=== PATIENT | female | born 1995 | race Native Hawaiian/Other Pacific Islander ===

== ENCOUNTER 2019-09-07 22:18 | Emergency (ER) | payer SELFPAY ==
[2019-09-08 00:38] VITALS: BP 139/93
[2019-09-08] MEDS ORDERED: ONDANSETRON 4 MG/2 ML INJ IV ONE (01:16)
[2019-09-08] MEDS ORDERED: SODIUM CHLORIDE 0.9% 1000 ML 1,000 ML IV ONE (01:16)
[2019-09-08] MEDS ORDERED: DICYCLOMINE 20 MG/2 ML INJ IM ONE (01:17)
[2019-09-08] MEDS ORDERED: FAMOTIDINE 20 MG/2 ML INJ IV ONE (01:17)
--- NOTE | 2019-09-08 01:20 | Emergency Department Report ---
ED N/V/D HPI - General Chief complaint: Nausea/Vomiting/Diarrhea Stated complaint: BODY PAIN Time Seen by Provider: 09/08/19 01:05 Source: patient Mode of arrival: Ambulatory Limitations: No Limitations - History of Present Illness Initial comments: 24 year old female presents to ED c/o flu like symptoms. Onset of symptoms yesterday. She reports nausea with multiple episodes of vomiting since yesterday. She states she had only one episode of diarrhea but she has been having "bad" upper abdominal pain. She reports associated generalized body aches, rhinorrhea, nasal congestion and subjective fever. She denies any apparent ill contacts. She denies any uti symptoms or abnl vag symptoms. Her last MC was about 2 weeks ago. She denies any cough, SOB, wheezing or any other symptoms at this time. MD complaint: nausea, vomiting, diarrhea, abdominal pain, other (Body aches, URI symptoms) -: Sudden (yesterday ) - Related Data Previous Rx's Medication Instructions Recorded Last Taken Type Sulfamethoxazole/Trimethoprim 1 each PO BID #14 tablet 08/02/15 Unknown Rx [Bactrim DS TAB] Acetaminophen/Codeine [Tylenol 1 tab PO Q6H PRN #15 tab 09/08/19 Unknown Rx /Codeine # 3 tab] Famotidine [Pepcid] 40 mg PO QHS #14 tablet 09/08/19 Unknown Rx Ondansetron [Zofran Odt] 4 mg PO Q8HR PRN #12 tab.rapdis 09/08/19 Unknown Rx Allergies Allergy/AdvReac Type Severity Reaction Status Date / Time No Known Allergies Allergy Verified 09/07/19 22:33 ED Review of Systems ROS: Stated complaint: BODY PAIN Other details as noted in HPI Comment: All other systems reviewed and negative Constitutional: see HPI, fever, weakness. denies: chills ENT: congestion, other (rhinorrhea) Respiratory: denies: cough, shortness of breath, SOB with exertion, SOB at rest, wheezing Cardiovascular: denies: chest pain Gastrointestinal: abdominal pain, nausea, vomiting, diarrhea Genitourinary: denies: urgency, dysuria, frequency, hematuria, discharge, abnormal menses, dyspareunia Musculoskeletal: myalgia Neurological: weakness. denies: headache, numbness, paresthesias, confusion, abnormal gait, vertigo ED Past Medical Hx - Past Medical History Previous Medical History?: No - Surgical History Past Surgical History?: Yes Additional Surgical History: chest tube - Social History Smoking Status: Never Smoker Substance Use Type: Marijuana - Medications Home Medications: Home Medications Medication Instructions Recorded Confirmed Last Taken Type Sulfamethoxazole/Trimethoprim 1 each PO BID #14 tablet 08/02/15 Unknown Rx [Bactrim DS TAB] Acetaminophen/Codeine [Tylenol 1 tab PO Q6H PRN #15 tab 09/08/19 Unknown Rx /Codeine # 3 tab] Famotidine [Pepcid] 40 mg PO QHS #14 tablet 09/08/19 Unknown Rx Ondansetron [Zofran Odt] 4 mg PO Q8HR PRN #12 tab.rapdis 09/08/19 Unknown Rx ED Physical Exam - General Limitations: No Limitations General appearance: alert, other (pt ill appearing but overall not toxic) - Head Head exam: Present: atraumatic, normocephalic, normal inspection - Eye Eye exam: Present: normal appearance, PERRL Pupils: Present: normal accommodation - ENT ENT exam: Present: normal orophraynx, mucous membranes dry - Neck Neck exam: Present: normal inspection, full ROM. Absent: tenderness, meningismu s - Respiratory Respiratory exam: Present: normal lung sounds bilaterally - Cardiovascular Cardiovascular Exam: Present: regular rate, normal rhythm, normal heart sounds - GI/Abdominal GI/Abdominal exam: Present: soft, tenderness (diffuse upper abdomen). Absent: distended, guarding, rebound - Neurological Exam Neurological exam: Present: alert, oriented X3, CN II-XII intact, normal gait - Skin Skin exam: Present: intact ED Course Vital Signs 09/07/19 09/08/19 22:33 03:50 Temperature 98.7 F Pulse Rate 49 L Respiratory 18 18 Rate Blood Pressure 139/93 O2 Sat by Pulse 100 Oximetry ED Medical Decision Making - Lab Data Result diagrams: 09/08/19 00:36 09/08/19 00:36 - Radiology Data patient presented to ED c/o flu like symptoms including nausea, vomiting, body aches, cough uri symptoms and 1 episode of diarrhea. labs reviewed and unremarkable including negative flu. Patient currently resting comfortably and no distress. She is not toxic appearing. She has normal mental status and she is neurologically intact. She has non surgical abdominal exam. She has not vomitting since she has been in room. Her vitals are stable. Suspect viral syndrome at this time. Imaging nor any further work up indicated at this time. Discussed results with patient. Recommend close f/u with PCP but if worse return to ED. Critical care attestation.: If time is entered above; I have spent that time in minutes in the direct care of this critically ill patient, excluding procedure time. ED Disposition Clinical Impression: Gastroenteritis, Viral syndrome Disposition: DC- TO HOME OR SELFCARE Is pt being admited?: No Does the pt Need Aspirin: No Condition: Stable Instructions: Gastroenteritis (ED), Viral Syndrome (ED) Prescriptions: Famotidine [Pepcid] 40 mg PO QHS #14 tablet Acetaminophen/Codeine [Tylenol /Codeine # 3 tab] 1 tab PO Q6H PRN #15 tab PRN Reason: Breakthrough Pain Ondansetron [Zofran Odt] 4 mg PO Q8HR PRN #12 tab.rapdis PRN Reason: Vomiting Referrals: CHUCK JAMES MD [Staff Physician] - 3-5 Days Forms: Work/School Release Form(ED) Time of Disposition: 04:00
[2019-09-08 01:46] LABS: Basophils % (Auto) 0.4 % (0.0-1.8); Eosinophils % (Auto) 0.3 % (0.0-4.3); Hematocrit 50.6 % (30.3-42.9); Hemoglobin 17.2 gm/dl (10.1-14.3); Lymphocytes # (Auto) 1.6 K/mm3 (1.2-5.4); Lymphocytes % (Auto) 14.7 % (13.4-35.0); Mean Corpuscular HGB Conc 34 % (30-34); Mean Corpuscular Volume 86 fl (79-97); Monocytes # (Auto) 1.1 K/mm3 (0.0-0.8); Monocytes % (Auto) 9.6 % (0.0-7.3); Platelet Count 317 K/mm3 (140-440); Red Blood Count 5.92 M/mm3 (3.65-5.03)
[2019-09-08 01:52] LABS: Bacteria,Urine 1+ /HPF (Negative); Bilirubin,Urine NEG (Negative); Blood,Urine NEG (Negative); Color,Urine Yellow (Yellow); Mucus,Urine 2+ /HPF; Urobilinogen,Urine < 2.0 mg/dL (<2.0)
[2019-09-08 02:05] LABS: Alanine Aminotransferase 16 units/L (7-56); Albumin 5.3 g/dL (3.9-5); BUN/Creatinine Ratio 25; Blood Urea Nitrogen 15 mg/dL (7-17); Calcium 10.8 mg/dL (8.4-10.2); Hemolysis Index 16
[2019-09-08] MEDS ORDERED: KETOROLAC 30 MG/1 ML INJ IV ONE (03:29)
== END 2019-09-08 04:35 | disposition home or self-care (01) ==
LOC: ED 22:18
DX: K52.9 Noninfective gastroenteritis and colitis, unspecified (principal); B34.9 Viral infection, unspecified; F12.10 Cannabis abuse, uncomplicated; Z79.899 Other long term (current) drug therapy
CPT/HCPCS: 36415; 80053; 81001; 83690; 84703; 85025; 87400; 96361; 96372; 96374; 96375; 99283; J0500; J1885; J2405; J7030